=== PATIENT | male | born 1945 | race Caucasian/White ===

== ENCOUNTER 2018-09-05 11:15 | Emergency (ER) | payer MEDICARE, BC ==
--- NOTE | 2018-09-05 12:30 | ULT ---
SOFT TISSUE ULTRASOUND: HISTORY: Left back mass. COMPARISON: None. TECHNIQUE: Targeted sonographic imaging of the region of concern is performed. There is a 4 x 3 inch erythematous and warm focus that the key maker evaluated. Based by sonograph y, there is a complex echotexture lesion measuring 2.8 x 1.7 x 3.8 cm. Infected fluid collection can not be excluded. IMPRESSION: Probable infected fluid collection given erythema and warmth in the overlying dermis. POS: [facility]
== END 2018-09-05 12:54 | disposition home or self-care (01) ==
LOC: SCSER 11:15
DX: L03.312 Cellulitis of back [any part except buttock and flank] (principal); K21.9 Gastro-esophageal reflux disease without esophagitis; E78.5 Hyperlipidemia, unspecified; I10 Essential (primary) hypertension; N40.0 Benign prostatic hyperplasia without lower urinary tract symptoms; Z79.899 Other long term (current) drug therapy; Z79.82 Long term (current) use of aspirin
CPT/HCPCS: 76999